=== PATIENT | male | born 1990 | race Two or more races ===

== ENCOUNTER 2017-11-30 18:49 | Observation (INO) | payer OTHER ==
--- NOTE | 2017-11-30 19:02 | PDOC ---
Rapid Medical Evaluation Chief Complaint: Eye Problem Time Seen by Provider: 11/30/17 18:56 Medical Evaluation: Allergies Allergy/AdvReac Type Severity Reaction Status Date / Time sulfamethoxazole Allergy Rash Verified 11/30/17 18:53 [From Bactrim] trimethoprim [From Bactrim] Allergy Rash Verified 11/30/17 18:53 11/30/17 18:57 Pt c/o: rt eye redness x 4 months, pcp referred to optho, recent dx of syphyllis , c/o blurriness to eye Pt on brief exam: no lesions, no discharge, Pt ordered for : none Pt to proceed to the ED Discharge Disposition - Diagnosis Acquired syphilis - Referrals - Patient Instructions - Post Discharge Activity
--- NOTE | 2017-11-30 19:14 | PDOC ---
History of Present Illness <Mary Ornelas - Last Filed: 11/30/17 19:51> - History of Present Illness Initial Comments: 11/30/17 19:27 Mr. Caldwell is a 27 yo male w/ pmh of HIV (last viral load 40 with CD4 count 596 () who presents for evaluation of new onset syphilis diagnosis with uveitis. Patient reports he has had a rash on his penis since the end of october and right eye redness with photophobia since. Mr. Caldwell was treated with 2.4M units of penicillin on 11/22/17. He has no further complaints at this time. The patient denies chest pain, shortness of breath, headache and dizziness. Denies fever, chills, nausea, vomit, diarrhea and constipation. Denies dysuria, frequency, urgency and hematuria. Allergies: Sulfamethoxazole, trimethoprim <Dominic Mckeon - Last Filed: 11/30/17 23:48> - General Chief Complaint: Eye Problem Stated Complaint: EYE PROBLEM Time Seen by Provider: 11/30/17 18:56 Past History <Mary Ornelas - Last Filed: 11/30/17 19:51> - Past Medical History Asthma: No Diabetes: No - Immunization History Immunization Up to Date: Yes - Suicide/Smoking/Psychosocial Hx Smoking History: Never smoked Have you smoked in the past 12 months: Yes Number of Cigarettes Smoked Daily: 7 If you are a former smoker, when did you quit?: 5 Cigars Per Day: 0 Hx Alcohol Use: Yes (alcohol socially) Drug/Substance Use Hx: Yes (admits to use of pills in past; none currently) Substance Use Type: Marijuana Hx Substance Use Treatment: No <Dominic Mckeon - Last Filed: 11/30/17 23:48> - Past Medical History Allergies/Adverse Reactions: Allergies Allergy/AdvReac Type Severity Reaction Status Date / Time sulfamethoxazole Allergy Rash Verified 11/30/17 18:53 [From Bactrim] trimethoprim [From Bactrim] Allergy Rash Verified 11/30/17 18:53 Home Medications: Ambulatory Orders Loratadine [Claritin -] 10 mg PO DAILY #30 tablet 11/03/17 Multivitamin,Ther and Minerals [Vitamin and Minerals] 1 each PO DAILY #30 tablet 11/03/17 Review of Systems - Review of Systems Comments:: 11/30/17 20:23 GENERAL/CONSTITUTIONAL: No fever or chills. No weakness. HEAD, EYES, EARS, NOSE AND THROAT: +Right eye redness and sensitivity to light since late October. CARDIOVASCULAR: No chest pain or shortness of breath RESPIRATORY: No cough, wheezing, or hemoptysis. GASTROINTESTINAL: No nausea, vomiting, diarrhea or constipation. GENITOURINARY: +Rash to head of penis. Painless without discharge. No dysuria, frequency, or change in urination. MUSCULOSKELETAL: No joint or muscle swelling or pain. No neck or back pain. SKIN: No rash NEUROLOGIC: No headache, vertigo, loss of consciousness, or change in strength/ sensation. ENDOCRINE: No increased thirst. No abnormal weight change HEMATOLOGIC/LYMPHATIC: No anemia, easy bleeding, or history of blood clots. ALLERGIC/IMMUNOLOGIC: No hives or skin allergy. <Dominic Mckeon - Last Filed: 11/30/17 23:48> *Physical Exam - Vital Signs Last Vital Signs Temp Pulse Resp BP Pulse Ox 98.2 F 110 H 18 159/84 98 11/30/17 18:53 11/30/17 18:53 11/30/17 18:53 11/30/17 18:53 11/30/17 18:53 <Mary Ornelas - Last Filed: 11/30/17 19:51> - Vital Signs Last Vital Signs Temp Pulse Resp BP Pulse Ox 98.2 F 110 H 18 159/84 98 11/30/17 18:53 11/30/17 18:53 11/30/17 18:53 11/30/17 18:53 11/30/17 18:53 - Physical Exam Comments: 11/30/17 20:23 GENERAL: Awake, alert, and fully oriented, in no acute distress HEAD: No signs of trauma, normocephalic, atraumatic EYES: +Right eye sclera inflammed.. PERRLA, EOMI ENT: Auricles normal inspection, hearing grossly normal, nares patent, oropharynx clear without exudates. Moist mucosa NECK: Normal ROM, supple, no lymphadenopathy, JVD, or masses LUNGS: No distress, speaks full sentences, clear to auscultation bilaterally HEART: Regular rate and rhythm, normal S1 and S2, no murmurs, rubs or gallops, peripheral pulses normal and equal bilaterally. ABDOMEN: Soft, nontender, normoactive bowel sounds. No guarding, no rebound. No masses EXTREMITIES: Normal inspection, Normal range of motion, no edema. No clubbing or cyanosis. NEUROLOGICAL: Cranial nerves II through XII grossly intact. Normal speech, normal gait, no focal sensorimotor deficits SKIN: Warm, Dry, normal turgor, no rashes or lesions noted. : Multiple painless chancre-like lesions noted to glans and shaft of penis. No drainage noted. <Dominic Mckeon - Last Filed: 11/30/17 23:48> ED Treatment Course - LABORATORY CBC & Chemistry Diagram: 11/30/17 20:40 11/30/17 20:40 <Dominic Mckeon - Last Filed: 11/30/17 23:48> Medical Decision Making - Medical Decision Making 11/30/17 19:52 Dr. Francis was paged and notified via phone service. <Mary Ornelas - Last Filed: 11/30/17 19:51> - Medical Decision Making 11/30/17 20:18 Mr. Caldwell is a 27 yo male w/ pmh as described who presents for evaluation of new onset symphilis with uveitis. Consulted with Dr. Krueger for any special needs prior to admission - recommended ophthalmology consult with admission for further care. No further action necessary at this time. 11/30/17 22:00 Labs grossly wnl as below. EKG/CXR ordered for admission prep. Laboratory Results - last 24 hr 11/30/17 11/30/17 20:40 20:40 WBC 8.5 D RBC 4.51 Hgb 14.5 Hct 42.2 MCV 93.6 MCH 32.2 MCHC 34.3 RDW 12.8 Plt Count 310 MPV 7.1 L Neutrophils % 60.3 Lymphocytes % 27.7 Monocytes % 9.4 Eosinophils % 1.8 Basophils % 0.8 Sodium 142 Potassium 4.1 Chloride 109 H Carbon Dioxide 26 Anion Gap 7 L BUN 15 D Creatinine 1.1 Creat Clearance w eGFR > 60 Random Glucose 96 D Calcium 8.7 Total Bilirubin 0.9 AST 17 D ALT 21 D Alkaline Phosphatase 89 Total Protein 6.8 Albumin 4.1 11/30/17 23:33 Inpatient team consulted for admission for further care. <Dominic Mckeon - Last Filed: 11/30/17 23:48> *DC/Admit/Observation/Transfer <Mary Ornelas - Last Filed: 11/30/17 19:51> - Discharge Dispostion Admit: Yes <Dominic Mckeon - Last Filed: 11/30/17 23:48> Diagnosis at time of Disposition: Acquired syphilis, Uveitis - Referrals Referrals: Divya Nguyen, [employer] [Primary Care Provider] -
--- NOTE | 2017-11-30 19:47 | PDOC ---
Attending Attestation - Resident Resident Name: Dominic Mckeon - ED Attending Attestation I have performed the following: I have examined & evaluated the patient, The case was reviewed & discussed with the resident, I agree w/resident's findings & plan, Exceptions are as noted - HPI HPI: 11/30/17 19:43 27y M hx of HIV (CD4 500s, VRL 40) on HAART, presents with R sided eye pain, pt was noted to have +RPR, was noted to have uveitis as an outpatient - was referred by ophtho and ID to the ED for further evaluation. Pt endorses photophobia on R eye. Pt was treated with bicilin a few days ago endorses penile rash pt denies fever/chills, cp, sob, on exam cardiac exam clear pulm: cta gu: penile rash neuro exam unremarkble - Physicial Exam PE: 12/01/17 03:16 see above - Medical Decision Making 11/30/17 23:43 ID requests admission for management of neuro syphillis
[2017-11-30 21:24] LABS: BASO % 0.8 % (0-2.0); EOS % 1.8 % (0-4.5); HEMATOCRIT 42.2 % (35.4-49); HEMOGLOBIN 14.5 GM/dL (11.7-16.9); LYMPH % 27.7 % (8-40); MCH 32.2 pg (25.7-33.7); MCHC 34.3 g/dl (32.0-35.9); MEAN CELL VOLUME 93.6 fl (80-96); MEAN PLT VOLUME 7.1 fl (7.5-11.1); MONO % 9.4 % (3.8-10.2); NEUT % 60.3 % (42.8-82.8); PLATELET COUNT 310 K/MM3 (134-434); RBC 4.51 M/mm3 (4.00-5.60); RDW 12.8 % (11.9-15.9); WHITE BLOOD COUNT 8.5 K/mm3 (4.0-10.0)
[2017-11-30 21:51] LABS: ALBUMIN 4.1 g/dl (3.4-5.0); ANION GAP 7 (8-16); BILIRUBIN,TOTAL 0.9 mg/dL (0.2-1.0); BLOOD UREA NITROGEN 15 mg/dL (7-18); CALCIUM 8.7 mg/dL (8.5-10.1); CHLORIDE 109 mmol/L (98-107); CO2 26 mmol/L (21-32); CREATININE 1.1 mg/dL (0.7-1.3); GLUCOSE,RANDOM 96 mg/dL (74-106); POTASSIUM 4.1 mmol/L (3.5-5.1); SGOT/AST 17 U/L (15-37); SGPT/ALT 21 U/L (12-78); SODIUM 142 mmol/L (136-145); TOT PROT 6.8 g/dl (6.4-8.2)
[2017-11-30 21:52] LABS: ALK PHOS 89 U/L (45-117)
[2017-11-30] MEDS ORDERED: PENICILLIN G POTASSIUM 5,000,000 (5Mm) UNIT VIAL IVPB ONE (23:44)
--- NOTE | 2017-12-01 02:58 | HP ---
CHIEF COMPLAINT: Sent by PCP PCP: Divya Nguyen HISTORY OF PRESENT ILLNESS: The patient is a 27 yo m w/ PMH HIV (Last viral load 40, CD4 596 11/03/2017) who was sent to the ED by his PCP after a new diagnosis of syphilis with uveitis. [facility] on 11/17, he was seen there c/o eye discomfort and genital rash. RPR at that visit was positive and patient was recalled 11/22. At this second visit, the patient's rash had spread to his hand. The patient was treated with IM penicillin G and instructed to follow-up with an monomer recovery supervisor. The patient's monomer recovery supervisor was concerned for anterior uveitis and encourage the patient to follow-up to rule out neurosyphilis. The patient has been manogamous with one male for the past year and uses condoms occasionally. Patient denies dysuria, fever, chills, shortness of breath, chest pain, abdominal pain. ER course was notable for: (1) (2) (3) Recent Travel: none PAST MEDICAL HISTORY: HIV PAST SURGICAL HISTORY: none Social History: Smoking: smokes 5-7 cigarettes per day for 6 years Alcohol: socially Drugs: marijuana Family History: non-contributory Allergies sulfamethoxazole [From Bactrim] Allergy (Verified 11/30/17 18:53) Rash Jul 2015 - took bactrim for a cyst; developed itching, redness, felt tired and could not move trimethoprim [From Bactrim] Allergy (Verified 11/30/17 18:53) Rash Jul 2015 - took bactrim for a cyst; developed itching, redness, felt tired and could not move HOME MEDICATIONS: Home Medications Medication Instructions Recorded Loratadine [Claritin -] 10 mg PO DAILY #30 tablet 11/03/17 Multivitamin,Ther and Minerals 1 each PO DAILY #30 tablet 11/03/17 [Vitamin and Minerals] REVIEW OF SYSTEMS CONSTITUTIONAL: Absent: fever, chills, diaphoresis, generalized weakness, malaise, loss of appetite, weight change HEENT: Absent: rhinorrhea, nasal congestion, throat pain, throat swelling, difficulty swallowing, mouth swelling, ear pain, eye pain, visual changes CARDIOVASCULAR: Absent: chest pain, syncope, palpitations, irregular heart rate, lightheadedness , peripheral edema RESPIRATORY: Absent: cough, shortness of breath, dyspnea with exertion, orthopnea, wheezing, stridor, hemoptysis GASTROINTESTINAL: Absent: abdominal pain, abdominal distension, nausea, vomiting, diarrhea, constipation, melena, hematochezia GENITOURINARY: Absent: dysuria, frequency, urgency, hesitancy, hematuria, flank pain, genital pain MUSCULOSKELETAL: Absent: myalgia, arthralgia, joint swelling, back pain, neck pain SKIN: Absent: rash, itching, pallor HEMATOLOGIC/IMMUNOLOGIC: Absent: easy bleeding, easy bruising, lymphadenopathy, frequent infections ENDOCRINE: Absent: unexplained weight gain, unexplained weight loss, heat intolerance, cold intolerance NEUROLOGIC: Absent: headache, focal weakness or paresthesias, dizziness, unsteady gait, seizure, mental status changes, bladder or bowel incontinence PSYCHIATRIC: Absent: anxiety, depression, suicidal or homicidal ideation, hallucinations. PHYSICAL EXAMINATION Vital Signs - 24 hr 11/30/17 12/01/17 18:53 00:56 Temperature 98.2 F Pulse Rate 110 H Pulse Rate [ 91 H Right] Respiratory 18 20 Rate Blood Pressure 159/84 Blood Pressure 146/82 [Left Arm] O2 Sat by Pulse 98 99 Oximetry (%) GENERAL: Awake, alert, and fully oriented, in no acute distress. HEAD: Normal with no signs of trauma. EYES: Pupils equal, round and reactive to light, extraocular movements intact, sclera anicteric, conjunctiva clear. No lid lag. Mild scleral injection in the right eye EARS, NOSE, THROAT: Ears normal, nares patent, oropharynx clear without exudates. Moist mucous membranes. NECK: Normal range of motion, supple without lymphadenopathy, JVD, or masses. LUNGS: Breath sounds equal, clear to auscultation bilaterally. No wheezes, and no crackles. No accessory muscle use. HEART: Regular rate and rhythm, normal S1 and S2 without murmur, rub or gallop. ABDOMEN: Soft, nontender, not distended, normoactive bowel sounds, no guarding, no rebound, no masses. No hepatomegaly or splenomegaly. LOWER EXTREMITIES: 2+ pulses, warm, well-perfused. No calf tenderness. No peripheral edema. NEUROLOGICAL: Cranial nerves II-X intact. Normal speech. strength 5/5 in all extremities. PSYCHIATRIC: Cooperative. Good eye contact. Appropriate mood and affect. SKIN: Warm, dry, normal turgor, no rashes or lesions noted, normal capillary refill. Genital: Multiple flesh colored lesions over the shaft and glans of the penis. Lesions are not painful and dry. Laboratory Results - last 24 hr 11/30/17 11/30/17 20:40 20:40 WBC 8.5 D RBC 4.51 Hgb 14.5 Hct 42.2 MCV 93.6 MCH 32.2 MCHC 34.3 RDW 12.8 Plt Count 310 MPV 7.1 L Neutrophils % 60.3 Lymphocytes % 27.7 Monocytes % 9.4 Eosinophils % 1.8 Basophils % 0.8 Sodium 142 Potassium 4.1 Chloride 109 H Carbon Dioxide 26 Anion Gap 7 L BUN 15 D Creatinine 1.1 Creat Clearance w eGFR > 60 Random Glucose 96 D Calcium 8.7 Total Bilirubin 0.9 AST 17 D ALT 21 D Alkaline Phosphatase 89 Total Protein 6.8 Albumin 4.1 ASSESSMENT/PLAN: The patient is a 27 yo m w/ PMH HIV who is being admitted for further workup for possible neurosyphilis #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 - New Patient This patient is new to me today: Yes Date on this admission: 12/01/17 - Critical Care Critical Care patient: No Hospitalist Screening - Colonoscopy Questionnaire Colonoscopy Questionnaire: Colonoscopy Questionnaire - Patient: 50 - 75 years old and never had a screening colonoscopy: No History of colon or rectal polyps, or CA: No History of IBD, Crohn's disease or UC: No History of abdominal radiation therapy as a child: No - Relative: 1 with colon or rectal CA, or polyps at age 60 or younger: Unknown Colon or rectal CA diagnosed at age 45 or younger: Unknown Multiple relatives with colon or rectal CA: Unknown - Outcome: Screening Result: Negative Screen
[2017-12-01 03:30] VITALS: BMI 23.6
--- NOTE | 2017-12-01 04:49 | PN ---
Teaching Attending Note Name of Resident: Jayme Barrera ATTENDING PHYSICIAN STATEMENT I saw and evaluated the patient. Chart, data, imaging reviewed. I reviewed the resident's note and discussed the case with the resident. I agree with the resident's findings and plan as documented. SUBJECTIVE: 27 yo MSM w/ pmh of HIV (last viral load 40 with CD4 count 596 (11/03/17) with positive RPR in November 2017, s/p one dose of 2.4 million units Bicilin IM 11/22. He c/o several days of blurry vision in his right eye associated with some photophobia. He was seen by opthalmologist who suspected uveitis and told patient to come go to hospital for evaluation. Patient practices oral and anal sex, including receptive. He reported testing negative for chlamydia and gonorrhea in urine. He c/o painless penile lesions since october 2017. He has had one male partner in last year and has been using condoms inconsistently. 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 Right eye blurry vision. -admit to med/surg -send RPR -opthalmology consult -ID consult -Lumbar puncture -cell count, vdrl, protein level, glucose, ldh -if confirmed ocular syphilis, patient will need IV penicillin #HIV -controlled -send CD4 count -HIV viral load PCR -continue Genvoya 1 tab daily -send chlamydia/gonorrhea NAAT in urine #DVT ppx -heparin sc Diet- regular diet
[2017-12-01 07:11] LABS: BASO % 0.8 % (0-2.0); EOS % 2.8 % (0-4.5); HEMATOCRIT 41.4 % (35.4-49); HEMOGLOBIN 14.5 GM/dL (11.7-16.9); LYMPH % 44.1 % (8-40); MCH 32.4 pg (25.7-33.7); MCHC 34.9 g/dl (32.0-35.9); MEAN CELL VOLUME 92.8 fl (80-96); MEAN PLT VOLUME 7.1 fl (7.5-11.1); MONO % 10.6 % (3.8-10.2); NEUT % 41.7 % (42.8-82.8); PLATELET COUNT 298 K/MM3 (134-434); RBC 4.46 M/mm3 (4.00-5.60); RDW 12.9 % (11.9-15.9); WHITE BLOOD COUNT 6.7 K/mm3 (4.0-10.0)
--- NOTE | 2017-12-01 07:48 | MSN ---
Progress Note (SOAP) - Subjective Chief Complaint: "Right eye pain" History of Present Illness: Pt is a 27 y/o male with past medical history of HIV managed with HAART therapy , at the [facility], who presented to the ED on 11/30 with right eye pain. Pt had a positive RPR for syphilis in November 2017 and received one dose of IM bicillin on 11/22/17. He has had several days of right eye pain and blurry vision along with photophobia. Pt was sent from [facility] to kiss machine operator for evaluation of eye who then sent the patient to the ED. Patient currently complains of no eye pain and vision blurriness has improved. Patient denies any nausea, vomiting, fever, chills, shortness of breath, chest pain or dysuria. Patient denies any urethral discharge. Patient is sexually active and monogamous with one male partner for the past year. Patient practices oral and anal sex and does not use protection consistently. - Objective Vital Signs: Vital Signs Temperature 97.8 F 12/01/17 01:30 Pulse Rate 60 12/01/17 01:30 Respiratory Rate 20 12/01/17 06:00 Blood Pressure 124/58 12/01/17 01:30 O2 Sat by Pulse Oximetry (%) 99 12/01/17 06:00 Constitutional: Yes: Well Nourished, No Distress, Calm Eyes: Yes: EOM Intact, Other (Right eye scleral inflammation) HENT: Yes: Atraumatic, Normocephalic Neck: Yes: Supple Cardiovascular: Yes: Regular Rate and Rhythm Respiratory: Yes: Regular, CTA Bilaterally Gastrointestinal: Yes: Normal Bowel Sounds, Soft Genitourinary: Yes: Other (Erythematous rash) Peripheral Pulses WNL: Yes Peripheral Pulses: Left Radial: 2+, Right Radial: 2+, Left Doralis Pedis: 2+, Right Dorsalis Pedis: 2+ Edema: No Integumentary: Yes: Erythema Neurological: Yes: Alert, Oriented, Cran Nerves II-XII Intact ...Motor Strength: Yes: WNL Psychiatric: Yes: Alert, Oriented Labs Lab Results: CBC, BMP 12/01/17 06:50 Assessment/Plan 1) Right Eye Uveitis * Possibly due to neurosyphilis * ID consulted * Consult ophthalmology * Positive RPR in November 2017 * If neurosyphilis is confirmed pt will need IV Penicillin 2) HIV * Controlled with HAART therapy * Managed at the [facility] * Chlamydia/gonorrhea NAAT * Continue Genvoya one tablet daily PO
[2017-12-01 08:05] LABS: CHLORIDE 108 mmol/L (98-107); POTASSIUM 3.8 mmol/L (3.5-5.1); SODIUM 142 mmol/L (136-145)
[2017-12-01 08:11] LABS: BLOOD UREA NITROGEN 11 mg/dL (7-18); GLUCOSE,RANDOM 86 mg/dL (74-106)
--- NOTE | 2017-12-01 08:11 | CON.ID ---
Consult Consult Specialty:: Infectious Disease Referred by:: Primary Reason for Consultation:: Syphilis, HIV - History of Present Illness History of Present Illness: 27 year old M with pmh of HIV (last cd4 596, Viral load 40 11/03/17) sent by PCP for new onset syphilis with uveitis. Patient was dx with syphilis on 11/17. He had been having blurry vision and photophobia over the last month. Patient went to optho and there was concern for uveitis. Patient denies fever, chills, chest pain, sob, abd pain, dysuria, hematuria, frequency, urgency, n/v/d/c. Patient is sexually active with males and uses condoms 99% of the time. Patient just exited a monogamous relationship after his diagnosis of syphilis. - History Source History Provided By: Patient Limitations to Obtaining History: No Limitations - Alcohol/Substance Use Hx Alcohol Use: Yes (alcohol socially) - Smoking History Smoking history: Never smoked Have you smoked in the past 12 months: Yes Aproximately how many cigarettes per day: 7 If you are a former smoker, when did you quit?: 5 Home Medications - Allergies Allergies/Adverse Reactions: Allergies Allergy/AdvReac Type Severity Reaction Status Date / Time sulfamethoxazole Allergy Rash Verified 11/30/17 18:53 [From Bactrim] trimethoprim [From Bactrim] Allergy Rash Verified 11/30/17 18:53 - Home Medications Home Medications: Ambulatory Orders Loratadine [Claritin -] 10 mg PO DAILY #30 tablet 11/03/17 Multivitamin,Ther and Minerals [Vitamin and Minerals] 1 each PO DAILY #30 tablet 11/03/17 Family Disease History - Family Disease History Family Disease History: Heart Disease: Grandparent (PGF - d. [place]), Father (?HTN) , [place]: Mother (HIV, throat ca, rubin pna, age 50), Other: Mother Review of Systems - Review of Systems Constitutional: denies: Chills, Fever Eyes: reports: Blurred Vision, Photophobia Neck: reports: No Symptoms Cardiovascular: reports: No Symptoms Respiratory: reports: No Symptoms Gastrointestinal: reports: No Symptoms Genitourinary: reports: Lesions, Pain Physical Exam Vital Signs: Vital Signs Temperature 97.8 F 12/01/17 01:30 Pulse Rate 60 12/01/17 01:30 Respiratory Rate 20 12/01/17 06:00 Blood Pressure 124/58 12/01/17 01:30 O2 Sat by Pulse Oximetry (%) 99 12/01/17 06:00 Constitutional: Yes: Well Nourished, No Distress, Calm Eyes: Yes: EOM Intact, PERRL, Other (Mild scleral injection-- Right eye) HENT: Yes: Atraumatic Neck: Yes: Supple, Trachea Midline. No: Lymphadenopathy Cardiovascular: Yes: Regular Rate and Rhythm, S1, S2 Respiratory: Yes: WNL, Regular, CTA Bilaterally Gastrointestinal: Yes: Normal Bowel Sounds, Soft. No: Tenderness Renal/: Yes: Other (Multiple papules along penile shaft and glans) Neurological: Yes: Alert, Oriented Psychiatric: Yes: Alert, Oriented Labs: CBC, BMP 12/01/17 06:50 Laboratory Tests 11/03/17 11/17/17 12/01/17 12:05 13:00 06:50 WBC 6.7 Absolute CD3 Count % CD3+ Lymphocytes Absolute CD4 [place] % CD4+ Lymphocyte CD4/CD8 Ratio % CD8+ Lymphocyte Absolute CD8 Count RPR Titer Reactive 1:32 H D C. trachomatis (ROHIT) HIV-1 RNA (PCR) 40 HIV-1 RNA (PCR) log10 1.602 N. gonorrhoeae (ROHIT) 12/01/17 12/01/17 06:50 06:50 WBC Absolute CD3 Count Pending % CD3+ Lymphocytes Pending Absolute CD4 [place] Pending % CD4+ Lymphocyte Pending CD4/CD8 Ratio Pending % CD8+ Lymphocyte Pending Absolute CD8 Count Pending RPR Titer Pending C. trachomatis (ROHIT) Pending HIV-1 RNA (PCR) HIV-1 RNA (PCR) log10 N. gonorrhoeae (ROHIT) Pending Imaging - Results Chest X-ray: Report Reviewed Assessment/Plan 1. Ocular Syphilis 2. HIV Plan: -IV penicillin G 4 million units daily q4h -Upon discharge, Can go on 200 mg doxycycline for a total of 21-28 days -Continue ART (Genvoya)
[2017-12-01 08:12] LABS: ALBUMIN 3.7 g/dl (3.4-5.0); ALK PHOS 81 U/L (45-117); ANION GAP 7 (8-16); BILIRUBIN,TOTAL 0.9 mg/dL (0.2-1.0); CALCIUM 8.2 mg/dL (8.5-10.1); CO2 27 mmol/L (21-32); PHOSPHOROUS 3.8 mg/dL (2.5-4.9); SGOT/AST 13 U/L (15-37); SGPT/ALT 18 U/L (12-78); TOT PROT 6.2 g/dl (6.4-8.2)
--- NOTE | 2017-12-01 08:58 | PN ---
Teaching Attending Note Name of Resident: Jarrod Swanson ATTENDING PHYSICIAN STATEMENT I saw and evaluated the patient. I reviewed the resident's note and discussed the case with the resident. I agree with the resident's findings and plan as documented. 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
--- NOTE | 2017-12-01 09:53 | CONSULT ---
Consult - text type - Consultation Consultation Note: Neurology HISTORY OF PRESENT ILLNESS: The patient is a 27 yo m w/ PMH HIV (Last viral load 40, CD4 596 11/03/2017) who was sent to the ED by his PCP after a new diagnosis of syphilis with uveitis. Patient follows at the [facility], on 11/17, he was seen there c/o Right eye discomfort and genital rash. RPR at that visit was positive and patient was recalled 11/22. At this second visit, the patient's rash had spread to his hand. The patient was treated with IM penicillin G and instructed to follow-up with an electronics specialist. The patient's electronics specialist was concerned for anterior uveitis and encourage the patient to follow-up to rule out neurosyphilis. Patient denies eye complaints today. Denied any pain in his eye. He has not had imaging of his head but CT head has been ordered. Spoke to primary team and only was to appropraitely evaluate for neurosyphillis would be spinal tap. Would recommended Fluro guided. Patient nervous about procedure, but reassured during conversation and in agreement. Recent Travel: none PAST MEDICAL HISTORY: HIV PAST SURGICAL HISTORY: none Social History: Smoking: smokes 5-7 cigarettes per day for 6 years Alcohol: socially Drugs: marijuana Family History: non-contributory Allergies sulfamethoxazole [From Bactrim] Allergy (Verified 11/30/17 18:53) Rash Jul 2015 - took bactrim for a cyst; developed itching, redness, felt tired and could not move trimethoprim [From Bactrim] Allergy (Verified 11/30/17 18:53) Rash Jul 2015 - took bactrim for a cyst; developed itching, redness, felt tired and could not move HOME MEDICATIONS: Home Medications Medication Instructions Recorded Loratadine [Claritin -] 10 mg PO DAILY #30 tablet 11/03/17 Multivitamin,Ther and Minerals 1 each PO DAILY #30 tablet 11/03/17 [Vitamin and Minerals] REVIEW OF SYSTEMS CONSTITUTIONAL: Absent: fever, chills, diaphoresis, generalized weakness, malaise, loss of appetite, weight change HEENT: Absent: rhinorrhea, nasal congestion, throat pain, throat swelling, difficulty swallowing, mouth swelling, ear pain, eye pain, visual changes CARDIOVASCULAR: Absent: chest pain, syncope, palpitations, irregular heart rate, lightheadedness , peripheral edema RESPIRATORY: Absent: cough, shortness of breath, dyspnea with exertion, orthopnea, wheezing, stridor, hemoptysis GASTROINTESTINAL: Absent: abdominal pain, abdominal distension, nausea, vomiting, diarrhea, constipation, melena, hematochezia GENITOURINARY: Absent: dysuria, frequency, urgency, hesitancy, hematuria, flank pain, genital pain MUSCULOSKELETAL: Absent: myalgia, arthralgia, joint swelling, back pain, neck pain SKIN: Absent: rash, itching, pallor HEMATOLOGIC/IMMUNOLOGIC: Absent: easy bleeding, easy bruising, lymphadenopathy, frequent infections ENDOCRINE: Absent: unexplained weight gain, unexplained weight loss, heat intolerance, cold intolerance NEUROLOGIC: Absent: headache, focal weakness or paresthesias, dizziness, unsteady gait, seizure, mental status changes, bladder or bowel incontinence PSYCHIATRIC: Absent: anxiety, depression, suicidal or homicidal ideation, hallucinations. PHYSICAL EXAMINATION Vital Signs Period Temp Pulse Resp BP Sys/Humphrey Pulse Ox Last 24 Hr 97.8 F-98.2 F 60-110 18-20 124-159/58-84 98-99 GENERAL: Awake, alert, and fully oriented, in no acute distress. HEAD: Normal with no signs of trauma. EYES: Pupils equal, round and reactive to light, extraocular movements intact, sclera anicteric, conjunctiva clear. No lid lag. Mild scleral injection in the right eye EARS, NOSE, THROAT: Ears normal, nares patent, oropharynx clear without exudates. Moist mucous membranes. NECK: Normal range of motion, supple without lymphadenopathy, JVD, or masses. LUNGS: Breath sounds equal, clear to auscultation bilaterally. No wheezes, and no crackles. No accessory muscle use. HEART: Regular rate and rhythm, normal S1 and S2 without murmur, rub or gallop. ABDOMEN: Soft, nontender, not distended, normoactive bowel sounds, no guarding, no rebound, no masses. No hepatomegaly or splenomegaly. LOWER EXTREMITIES: 2+ pulses, warm, well-perfused. No calf tenderness. No peripheral edema. NEUROLOGICAL: Cranial nerves II-X intact. Normal speech. strength 5/5 in all extremities, sensory intact, gait deferred PSYCHIATRIC: Cooperative. Good eye contact. Appropriate mood and affect. SKIN: Warm, dry, normal turgor, no rashes or lesions noted, normal capillary refill. CBCD WBC 6.7 K/mm3 (4.0-10.0) 12/01/17 06:50 RBC 4.46 M/mm3 (4.00-5.60) 12/01/17 06:50 Hgb 14.5 GM/dL (11.7-16.9) 12/01/17 06:50 Hct 41.4 % (35.4-49) 12/01/17 06:50 MCV 92.8 fl (80-96) 12/01/17 06:50 MCHC 34.9 g/dl (32.0-35.9) 12/01/17 06:50 RDW 12.9 % (11.9-15.9) 12/01/17 06:50 Plt Count 298 K/MM3 (134-434) 12/01/17 06:50 MPV 7.1 fl (7.5-11.1) L 12/01/17 06:50 CMP Sodium 142 mmol/L (136-145) 12/01/17 06:50 Potassium 3.8 mmol/L (3.5-5.1) 12/01/17 06:50 Chloride 108 mmol/L (98-107) H 12/01/17 06:50 Carbon Dioxide 27 mmol/L (21-32) 12/01/17 06:50 Anion Gap 7 (8-16) L 12/01/17 06:50 BUN 11 mg/dL (7-18) D 12/01/17 06:50 Creatinine 1.0 mg/dL (0.7-1.3) 12/01/17 06:50 Creat Clearance w eGFR > 60 (>60) 12/01/17 06:50 Calcium 8.2 mg/dL (8.5-10.1) L 12/01/17 06:50 Total Bilirubin 0.9 mg/dL (0.2-1.0) 12/01/17 06:50 AST 13 U/L (15-37) L D 12/01/17 06:50 ALT 18 U/L (12-78) 12/01/17 06:50 Alkaline Phosphatase 81 U/L (45-117) 12/01/17 06:50 Total Protein 6.2 g/dl (6.4-8.2) L 12/01/17 06:50 Albumin 3.7 g/dl (3.4-5.0) 12/01/17 06:50 ASSESSMENT/PLAN: 27 yo m w/ PMH HIV (Last viral load 40, CD4 596 11/03/2017) who was sent to the ED by his PCP after a new diagnosis of syphilis with uveitis. Patient follows at the [facility], on 11/17, he was seen there c/o Right eye discomfort and genital rash. RPR at that visit was positive and patient was recalled 11/22. At this second visit, the patient's rash had spread to his hand. The patient was treated with IM penicillin G and instructed to follow-up with an electronics specialist. The patient's electronics specialist was concerned for anterior uveitis and encourage the patient to follow-up to rule out neurosyphilis. Patient denies eye complaints today. Denied any pain in his eye. He has not had imaging of his head but CT head has been ordered. Spoke to primary team and only was to appropraitely evaluate for neurosyphillis would be spinal tap after CT head completed. Would recommended Fluro guided spinal tap Patient nervous about procedure, but reassured during conversation and in agreement ID following, follow up rec'd Optho follow up Continue treatment of syphilis Otherwise neurologically stable
--- NOTE | 2017-12-01 10:03 | EKG ---
Test Reason : Blood Pressure : / mmHG Vent. Rate : 065 BPM Atrial Rate : 065 BPM P-R Int : 162 ms QRS Dur : 096 ms QT Int : 392 ms P-R-T Axes : 072 078 051 degrees QTc Int : 407 ms NORMAL SINUS RHYTHM WITH SINUS ARRHYTHMIA INCOMPLETE RBBB NO PREVIOUS ECGS AVAILABLE Confirmed by ERIKA ATKINS MD ([id number]) on 12/01/2017 10:02:44 AM Referred By: Confirmed By:ERIKA ATKINS MD
[2017-12-01] MEDS ORDERED: PENICILLIN G POTASSIUM 20,000,000 (20Mm) UNITS VIAL IVPB SCH (13:30)
[2017-12-01] MEDS: LORATADINE 10 MG TABLET PO SCH (14:05)
[2017-12-01] MEDS: MULTIVITAMINS THER W-MINERALS COMBO TABLET (FP) PO SCH (14:05)
[2017-12-01 14:33] LABS: TREPONEMA ANTIBODY PREVIOUSLY REACTIVE (NONREACTIVE)
--- NOTE | 2017-12-01 14:36 | PN ---
Teaching Attending Note Name of Resident: Gunner Hernandez ATTENDING PHYSICIAN STATEMENT Time of evaluation: 10:40 AM I saw and evaluated the patient. I reviewed the resident's note and discussed the case with the resident. I agree with the resident's findings and plan as documented with exceptions mentioned below. SUBJECTIVE: Patient seen and examined. eye symptoms improved. Still with rash on his penile region, no new fevers, chills or concerns. Positive photophobia from prior to admission. OBJECTIVE: Vital Signs Period Temp Pulse Resp BP Sys/Humphrey Pulse Ox Last 24 Hr 97.8 F-98.2 F 60-110 18-20 124-159/58-84 98-99 Intake & Output 11/28/17 11/29/17 11/30/17 12/01/17 23:59 23:59 23:59 23:59 Intake Total 480 Balance 480 Weight 155 lb 151 lb 3 oz General: sitting in bed in no acute distress HEENT: right scleral injection, PERRL, Abdomen:soft, NT, NT, positive bowel sounds extremities: no edema Genitals: hypopigmented lesion over the dorsal and ventral surface of penis, no erythema or tenderness, no discharge noted Home Medication List Medication Instructions Recorded Confirmed Type Elviteg/Cob/Emtri/Tenof Alafen 1 tablet PO DAILY 12/01/17 12/01/17 History [Genvoya Tablet] Active Medications Generic Name Dose Route Start Last Admin Trade Name Freq PRN Reason Stop Dose Admin Penicillin G Potassium 4,000, 250 mls @ 250 mls/hr 12/01/17 14:00 000 unit/ Dextrose IVPB Q4H-IV TRISTIN Loratadine 10 mg 12/01/17 13:45 12/01/17 14:05 Claritin - PO 10 mg DAILY TRISTIN Administration Multivitamins/Minerals 1 each 12/01/17 13:45 12/01/17 14:05 Theragran-M PO 1 each DAILY TRISTIN Administration Non-Formulary Medication 1 tablet 12/01/17 13:45 Elviteg/Cob/Emtri/Tenof Alafen [Genvoya Tablet] PO DAILY TRISTIN Laboratory Results - last 24 hr 11/30/17 11/30/17 12/01/17 20:40 20:40 06:50 WBC 8.5 D 6.7 RBC 4.51 4.46 Hgb 14.5 14.5 Hct 42.2 41.4 MCV 93.6 92.8 MCH 32.2 32.4 MCHC 34.3 34.9 RDW 12.8 12.9 Plt Count 310 298 MPV 7.1 L 7.1 L Neutrophils % 60.3 41.7 L D Lymphocytes % 27.7 44.1 H D Monocytes % 9.4 10.6 H Eosinophils % 1.8 2.8 Basophils % 0.8 0.8 Sodium 142 Potassium 4.1 Chloride 109 H Carbon Dioxide 26 Anion Gap 7 L BUN 15 D Creatinine 1.1 Creat Clearance w eGFR > 60 Random Glucose 96 D Calcium 8.7 Phosphorus Magnesium Total Bilirubin 0.9 AST 17 D ALT 21 D Alkaline Phosphatase 89 Total Protein 6.8 Albumin 4.1 12/01/17 06:50 WBC RBC Hgb Hct MCV MCH MCHC RDW Plt Count MPV Neutrophils % Lymphocytes % Monocytes % Eosinophils % Basophils % Sodium 142 Potassium 3.8 Chloride 108 H Carbon Dioxide 27 Anion Gap 7 L BUN 11 D Creatinine 1.0 Creat Clearance w eGFR > 60 Random Glucose 86 Calcium 8.2 L Phosphorus 3.8 Magnesium 2.0 Total Bilirubin 0.9 AST 13 L D ALT 18 Alkaline Phosphatase 81 Total Protein 6.2 L Albumin 3.7 ASSESSMENT AND PLAN: 27 yom with HIV on HAART with 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 Start PCN G IV q4h. Discussed with Dr. Francis, address if patient agreable to Pencillin G for 10-14 days would be ideal treatment. However patient adamantly refuses the same though relays full understanding of risks of non or inferior treatment including worsening ocular symptoms, neurosyphilis and . Second option would be to address Ceftriaxone 2G IV daily for 10-14 days. Discussed the option of possible d/c with PICC on monday with home infusion. Patient wants to know details about the same and agreable to consider the option and discuss with social work. Will have social work discuss with patient about the same. If patient declines both, last would be discharge on doxycycline for 21-28 days which patient understands would be suboptimal treatment. As discussed with Dr. Francis, LP at this stage won't change the treatment plan. Also patient not willing and anxious about the same. Will hold off. Will need continued outpatient ophthalmology follow up. Dispo planning on Monday with or without home IV antibiotics. Plan discussed with patient in detail, all questions answered.
--- NOTE | 2017-12-01 15:13 | PN ---
Physical Exam: SUBJECTIVE: Patient seen and examined No acute events overnight. Pt reports mild blurry vision in right eye, denies eye pain. No other complaints. OBJECTIVE: Vital Signs Period Temp Pulse Resp BP Sys/Humphrey Pulse Ox Last 24 Hr 97.8 F-98.2 F 60-110 18-20 124-159/58-84 98-99 GENERAL: The patient is awake, alert, and fully oriented, in no acute distress. HEENT: right eye has mild scleral injection. EOMI, PEARRLA. LUNGS: Breath sounds equal, clear to auscultation bilaterally, no wheezes, no crackles, no accessory muscle use. HEART: Regular rate and rhythm, S1, S2 without murmur, rub or gallop. ABDOMEN: Soft, nontender, nondistended, normoactive bowel sounds, no guarding, no rebound, no hepatosplenomegaly, no masses. EXTREMITIES: 2+ pulses, warm, well-perfused, no edema. NEUROLOGICAL: Cranial nerves II through XII grossly intact. sensory function intact and symmetrical, motor strength is 5/5 throughout. Laboratory Results - last 24 hr 11/30/17 11/30/17 12/01/17 20:40 20:40 06:50 WBC 8.5 D 6.7 RBC 4.51 4.46 Hgb 14.5 14.5 Hct 42.2 41.4 MCV 93.6 92.8 MCH 32.2 32.4 MCHC 34.3 34.9 RDW 12.8 12.9 Plt Count 310 298 MPV 7.1 L 7.1 L Neutrophils % 60.3 41.7 L D Lymphocytes % 27.7 44.1 H D Monocytes % 9.4 10.6 H Eosinophils % 1.8 2.8 Basophils % 0.8 0.8 Sodium 142 Potassium 4.1 Chloride 109 H Carbon Dioxide 26 Anion Gap 7 L BUN 15 D Creatinine 1.1 Creat Clearance w eGFR > 60 Random Glucose 96 D Calcium 8.7 Phosphorus Magnesium Total Bilirubin 0.9 AST 17 D ALT 21 D Alkaline Phosphatase 89 Total Protein 6.8 Albumin 4.1 RPR Titer T.pallidum Ab (A) 12/01/17 12/01/17 06:50 06:50 WBC RBC Hgb Hct MCV MCH MCHC RDW Plt Count MPV Neutrophils % Lymphocytes % Monocytes % Eosinophils % Basophils % Sodium 142 Potassium 3.8 Chloride 108 H Carbon Dioxide 27 Anion Gap 7 L BUN 11 D Creatinine 1.0 Creat Clearance w eGFR > 60 Random Glucose 86 Calcium 8.2 L Phosphorus 3.8 Magnesium 2.0 Total Bilirubin 0.9 AST 13 L D ALT 18 Alkaline Phosphatase 81 Total Protein 6.2 L Albumin 3.7 RPR Titer Reactive 1:32 H T.pallidum Ab (MHA) Previously reactive Active Medications Generic Name Dose Route Start Last Admin Trade Name Freq PRN Reason Stop Dose Admin Penicillin G Potassium 4,000, 250 mls @ 250 mls/hr 12/01/17 14:00 000 unit/ Dextrose IVPB Q4H-IV TRISTIN Loratadine 10 mg 12/01/17 13:45 12/01/17 14:05 Claritin - PO 10 mg DAILY TRISTIN Administration Multivitamins/Minerals 1 each 12/01/17 13:45 12/01/17 14:05 Theragran-M PO 1 each DAILY TRISTIN Administration Non-Formulary Medication 1 tablet 12/01/17 13:45 Elviteg/Cob/Emtri/Tenof Alafen [Genvoya Tablet] PO DAILY TRISTIN ASSESSMENT/PLAN: 27M w/ hx of HIV (11/03/17- CD4 of 596, viral load of 40) and syphillis who presented to hospital after being sent by PCP to r/o neurosyphillis due to recent finding of uveitis. #possible neurosyphillis -ID on board, recs appreciated. Continue PCN G q4h. 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 Because pt insisting that he needs to leave hospital by monday, plan for now is to place PICC on monday, and send him home on IV ceftriaxone 2g for 10-14 days with VNS. pt to f/ u as outpt with ophtho. -neuro on board, recs appreciated. -RPR: 1:32 -MHA: previously reactive -CT head: negative #HIV -continue home genvoya #allergies -continue home claritin #FEN/ppx -po fluids -electrolytes wnl -regular diet -no GI ppx indicated -EAM Case discussed with attending, Dr. Tate. -Gunner Hernandez MD PGY1 Visit type - Emergency Visit Emergency Visit: Yes ED Registration Date: 11/30/17 Care time: The patient presented to the Emergency Department on the above date and was hospitalized for further evaluation of their emergent condition. - New Patient This patient is new to me today: Yes Date on this admission: 12/01/17 - Critical Care Critical Care patient: No - Discharge Referral Referred to [facility] No
[2017-12-01] MEDS: WATER IVPB SCH ×3 (15:44→21:35)
[2017-12-01] MEDS: DEXTROSE 5% IVPB SCH ×3 (15:44→21:35)
[2017-12-01] MEDS: PENICILLIN POTASSIUM IVPB SCH ×3 (15:44→21:35)
[2017-12-01] MEDS ORDERED: PT OWN MED DRAWER 7, Y5N ONE (21:04)
--- NOTE | 2017-12-01 21:45 | HOSP ---
Physical Examination Vital Signs: Vital Signs Temperature 98.5 F 12/01/17 18:00 Pulse Rate 69 12/01/17 18:00 Respiratory Rate 20 12/01/17 18:00 Blood Pressure 135/81 12/01/17 18:00 O2 Sat by Pulse Oximetry (%) 99 12/01/17 09:00 Labs: CBC, BMP 12/01/17 06:50 12/01/17 06:50 Hospitalist Encounter Assessment: I was paged by the nurse to evaluate the pt mentioned he isasking to leave against medical advixe , I explained to him the risk and disadvatages of syphilis and neurosyphlis and worsening symptoms including and he decide to leave on his own responsibility with finishing treatment . Doxycyclin po 100 mg BID for 28 days was sent to his pharmacy. Visit type - Emergency Visit Emergency Visit: Yes ED Registration Date: 11/30/17 Care time: The patient presented to the Emergency Department on the above date and was hospitalized for further evaluation of their emergent condition. - New Patient This patient is new to me today: Yes Date on this admission: 12/01/17 - Critical Care Critical Care patient: No
[2017-12-02] MEDS: WATER IVPB SCH ×6 (02:18→20:02)
[2017-12-02] MEDS: PENICILLIN POTASSIUM IVPB SCH ×6 (02:18→20:02)
[2017-12-02] MEDS: DEXTROSE 5% IVPB SCH ×6 (02:18→20:02)
[2017-12-02] MEDS ORDERED: PT OWN MED DRAWER 7, Y5N ONE ×3 (06:57→16:14)
--- NOTE | 2017-12-02 08:07 | PN ---
Physical Exam: SUBJECTIVE: Patient seen and examined Pt almost left AMA overnight, but changed his mind last minute. This am, pt denies any eye pain, discomfort, or blurry vision. He denies chest pain, SOB, n/ v/d/c, and dysuria. OBJECTIVE: Vital Signs Period Temp Pulse Resp BP Sys/Humphrey Pulse Ox Last 24 Hr 97.8 F-98.5 F 60-74 18-20 110-135/70-81 97-99 GENERAL: The patient is awake, alert, and fully oriented, in no acute distress. HEENT: right eye has mild scleral injection. EOMI, PEARRLA. LUNGS: Breath sounds equal, clear to auscultation bilaterally, no wheezes, no crackles, no accessory muscle use. HEART: Regular rate and rhythm, S1, S2 without murmur, rub or gallop. ABDOMEN: Soft, nontender, nondistended, normoactive bowel sounds EXTREMITIES: 2+ pulses, warm, well-perfused, no edema. NEUROLOGICAL: Cranial nerves II through XII grossly intact. sensory function intact and symmetrical, motor strength is 5/5 throughout. Laboratory Results - last 24 hr 12/01/17 12/01/17 06:50 06:50 Sodium 142 Potassium 3.8 Chloride 108 H Carbon Dioxide 27 Anion Gap 7 L BUN 11 D Creatinine 1.0 Creat Clearance w eGFR > 60 Random Glucose 86 Calcium 8.2 L Phosphorus 3.8 Magnesium 2.0 Total Bilirubin 0.9 AST 13 L D ALT 18 Alkaline Phosphatase 81 Total Protein 6.2 L Albumin 3.7 RPR Titer Reactive 1:32 H T.pallidum Ab (MHA) Previously reactive Active Medications Generic Name Dose Route Start Last Admin Trade Name Freq PRN Reason Stop Dose Admin Penicillin G Potassium 4,000, 250 mls @ 250 mls/hr 12/01/17 14:00 12/02/17 06 :33 000 unit/ Dextrose IVPB 250 mls/hr Q4H-IV TRISTIN Administration Loratadine 10 mg 12/01/17 13:45 12/01/17 14:05 Claritin - PO 10 mg DAILY TRISTIN Administration Multivitamins/Minerals 1 each 12/01/17 13:45 12/01/17 14:05 Theragran-M PO 1 each DAILY TRISTIN Administration Non-Formulary Medication 1 tablet 12/01/17 15:45 12/01/17 15:39 Elviteg/Cob/Emtri/Tenof Alafen [Genvoya Tablet] PO Not Given DAILY TRISTIN ASSESSMENT/PLAN: 27M w/ hx of HIV (11/03/17- CD4 of 596, viral load of 40) and syphillis who presented to hospital after being sent by PCP to r/o neurosyphillis due to recent finding of uveitis. #possible neurosyphillis -ID on board, recs appreciated. Continue PCN G q4h (day 2). 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 Because pt insisting that he needs to leave hospital by monday, plan for now is to place PICC on monday, and send him home on IV ceftriaxone 2g for 10-14 days with VNS. pt to f/u as outpt with ophtho. -neuro on board, recs appreciated. -RPR: 1:32 -MHA: previously reactive -CT head: negative #HIV -continue home genvoya #allergies -continue home claritin #FEN/ppx -po fluids -electrolytes wnl per last labs -regular diet -no GI ppx indicated -EAM #Dispo -home with VNS on monday after obtaining PICC line to get IV ceftriaxone Case discussed with attending, Dr. Tate. -Gunner Hernandez MD PGY1 Visit type - Emergency Visit Emergency Visit: Yes ED Registration Date: 11/30/17 Care time: The patient presented to the Emergency Department on the above date and was hospitalized for further evaluation of their emergent condition. - New Patient This patient is new to me today: No - Critical Care Critical Care patient: No
--- NOTE | 2017-12-02 09:49 | PN ---
Teaching Attending Note Name of Resident: Gunner Hernandez ATTENDING PHYSICIAN STATEMENT I saw and evaluated the patient. I reviewed the resident's note and discussed the case with the resident. I agree with the resident's findings and plan as documented. SUBJECTIVE: Patient seen and examined. no complaints, eager to get out. OBJECTIVE: Vital Signs Period Temp Pulse Resp BP Sys/Humphrey Pulse Ox Last 24 Hr 97.8 F-98.5 F 60-74 18-20 110-135/69-81 97 Intake & Output 11/29/17 11/30/17 12/01/17 12/02/17 23:59 23:59 23:59 23:59 Intake Total 1090 500 Output Total 1 Balance 1090 499 Weight 155 lb 151 lb 3 oz General: sitting in bed in no acute distress HEENT: minimal right sclera injection Home Medication List Medication Instructions Recorded Confirmed Type Elviteg/Cob/Emtri/Tenof Alafen 1 tablet PO DAILY 12/01/17 12/01/17 History [Genvoya Tablet] Active Medications Generic Name Dose Route Start Last Admin Trade Name Freq PRN Reason Stop Dose Admin Penicillin G Potassium 4,000, 250 mls @ 250 mls/hr 12/01/17 14:00 12/02/17 06 :33 000 unit/ Dextrose IVPB 250 mls/hr Q4H-IV TRISTIN Administration Loratadine 10 mg 12/01/17 13:45 12/01/17 14:05 Claritin - PO 10 mg DAILY TRISTIN Administration Multivitamins/Minerals 1 each 12/01/17 13:45 12/01/17 14:05 Theragran-M PO 1 each DAILY TRISTIN Administration Non-Formulary Medication 1 tablet 12/01/17 15:45 12/01/17 15:39 Elviteg/Cob/Emtri/Tenof Alafen [Genvoya Tablet] PO Not Given DAILY TRISTIN Laboratory Results - last 24 hr 12/01/17 06:50 RPR Titer Reactive 1:32 H T.pallidum Ab (MHA) Previously reactive ASSESSMENT AND PLAN: 27 yom with HIV on HAART with 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 Continue PCN G 4 million units q4h. Discussed with Dr. Francis, address if patient agreable to Pencillin G for 10-14 days would be ideal treatment. However patient adamantly refuses the same though relays full understanding of risks of non or inferior treatment including worsening ocular symptoms, neurosyphilis and . Second option would be to address Ceftriaxone 2G IV daily for 10-14 days. Discussed the option of possible d/c with PICC on monday with home infusion. Patient wants to know details about the same and agreable to consider the option and discuss with social work. Will have social work discuss with patient about the same. If patient declines both, last would be doxycycline for 21-28 days which patient understands would be suboptimal treatment. As discussed with Dr. Francis, LP at this stage won't change the treatment plan. Also patient not willing and anxious about the same. Will hold off. Will need continued outpatient ophthalmology follow up. Dispo planning on Monday with or without home IV antibiotics. Plan discussed with patient in detail, all questions answered.
[2017-12-02] MEDS: MULTIVITAMINS THER W-MINERALS COMBO TABLET (FP) PO SCH (10:59)
[2017-12-02] MEDS: LORATADINE 10 MG TABLET PO SCH (10:59)
--- NOTE | 2017-12-02 12:46 | PN ---
Progress Note (short form) - Note Progress Note: Neurology HISTORY OF PRESENT ILLNESS: The patient is a 27 yo m w/ PMH HIV (Last viral load 40, CD4 596 11/03/2017) who was sent to the ED by his PCP after a new diagnosis of syphilis with uveitis. Patient follows at the [facility], on 11/17, he was seen there c/o Right eye discomfort and genital rash. RPR at that visit was positive and patient was recalled 11/22. At this second visit, the patient's rash had spread to his hand. The patient was treated with IM penicillin G and instructed to follow-up with an hematologist. The patient's hematologist was concerned for anterior uveitis and encourage the patient to follow-up to rule out neurosyphilis. Patient denies eye complaints today. Denied any pain in his eye. Ct head completed and without acute changes, no masses, reviewed with patient. Patient irritable this AM. Says he was angered by a physician he saw last night. Wanted to leave. Was complaining about being moved from different floor (nurse on prior floor mentioned vent patient brought to room). Patient says he's leaving Monday regardless of where his treatment stands. "will leave it in God's hands" at that point. Explained importance of treatment and of infection. Per notes, LP may be deferred and treatment underway. Plan is for line to be placed and Abx to be given IV outpatient. Is not getting cigarettes and reports that's making him irritable as well. Active Medications Penicillin G Potassium 4,000, (000 unit/ Dextrose) 250 mls @ 250 mls/hr IVPB Q4H-IV TRISTIN Last Admin: 12/02/17 11:44 Dose: 250 mls/hr Loratadine (Claritin -) 10 mg PO DAILY TRISTIN Last Admin: 12/02/17 10:59 Dose: 10 mg Multivitamins/Minerals (Theragran-M) 1 each PO DAILY TRISTIN Last Admin: 12/02/17 10:59 Dose: 1 each Non-Formulary Medication (Elviteg/Cob/Emtri/Tenof Alafen [Genvoya Tablet]) 1 tablet PO DAILY TRISTIN Last Admin: 12/02/17 12:01 Dose: 1 tablet PHYSICAL EXAMINATION Vital Signs Period Temp Pulse Resp BP Sys/Humphrey Pulse Ox Last 24 Hr 97.8 F-98.5 F 59-74 18-20 110-135/69-81 97-99 GENERAL: Awake, alert, and fully oriented, in no acute distress. HEAD: Normal with no signs of trauma. EYES: Pupils equal, round and reactive to light, extraocular movements intact, sclera anicteric, conjunctiva clear. No lid lag. Mild scleral injection in the right eye EARS, NOSE, THROAT: Ears normal, nares patent, oropharynx clear without exudates. Moist mucous membranes. NECK: Normal range of motion, supple without lymphadenopathy, JVD, or masses. LUNGS: Breath sounds equal, clear to auscultation bilaterally. No wheezes, and no crackles. No accessory muscle use. HEART: Regular rate and rhythm, normal S1 and S2 without murmur, rub or gallop. ABDOMEN: Soft, nontender, not distended, normoactive bowel sounds, no guarding, no rebound, no masses. No hepatomegaly or splenomegaly. LOWER EXTREMITIES: 2+ pulses, warm, well-perfused. No calf tenderness. No peripheral edema. NEUROLOGICAL: Cranial nerves II-X intact. Normal speech. strength 5/5 in all extremities, sensory intact, gait deferred PSYCHIATRIC: Cooperative. Good eye contact. Appropriate mood and affect. SKIN: Warm, dry, normal turgor, no rashes or lesions noted, normal capillary refill. CBCD WBC 6.7 K/mm3 (4.0-10.0) 12/01/17 06:50 RBC 4.46 M/mm3 (4.00-5.60) 12/01/17 06:50 Hgb 14.5 GM/dL (11.7-16.9) 12/01/17 06:50 Hct 41.4 % (35.4-49) 12/01/17 06:50 MCV 92.8 fl (80-96) 12/01/17 06:50 MCHC 34.9 g/dl (32.0-35.9) 12/01/17 06:50 RDW 12.9 % (11.9-15.9) 12/01/17 06:50 Plt Count 298 K/MM3 (134-434) 12/01/17 06:50 MPV 7.1 fl (7.5-11.1) L 12/01/17 06:50 CMP Sodium 142 mmol/L (136-145) 12/01/17 06:50 Potassium 3.8 mmol/L (3.5-5.1) 12/01/17 06:50 Chloride 108 mmol/L (98-107) H 12/01/17 06:50 Carbon Dioxide 27 mmol/L (21-32) 12/01/17 06:50 Anion Gap 7 (8-16) L 12/01/17 06:50 BUN 11 mg/dL (7-18) D 12/01/17 06:50 Creatinine 1.0 mg/dL (0.7-1.3) 12/01/17 06:50 Creat Clearance w eGFR > 60 (>60) 12/01/17 06:50 Calcium 8.2 mg/dL (8.5-10.1) L 12/01/17 06:50 Total Bilirubin 0.9 mg/dL (0.2-1.0) 12/01/17 06:50 AST 13 U/L (15-37) L D 12/01/17 06:50 ALT 18 U/L (12-78) 12/01/17 06:50 Alkaline Phosphatase 81 U/L (45-117) 12/01/17 06:50 Total Protein 6.2 g/dl (6.4-8.2) L 12/01/17 06:50 Albumin 3.7 g/dl (3.4-5.0) 12/01/17 06:50 ASSESSMENT/PLAN: 27 yo m w/ PMH HIV (Last viral load 40, CD4 596 11/03/2017) who was sent to the ED by his PCP after a new diagnosis of syphilis with uveitis. Patient follows at the [facility], on 11/17, he was seen there c/o Right eye discomfort and genital rash. RPR at that visit was positive and patient was recalled 11/22. At this second visit, the patient's rash had spread to his hand. The patient was treated with IM penicillin G and instructed to follow-up with an hematologist. The patient's hematologist was concerned for anterior uveitis and encourage the patient to follow-up to rule out neurosyphilis. Patient denies eye complaints today. Denied any pain in his eye. CT head reviewed and without acute changes Per notes, LP likely deferred as treatment plan in place ID following, follow up rec'd Optho follow up Continue treatment of syphilis Consider nicotine patch Explained to patient importance of treatment Relaxation recommended Otherwise neurologically stable
[2017-12-03] MEDS: WATER IVPB SCH ×6 (00:12→20:51)
[2017-12-03] MEDS: DEXTROSE 5% IVPB SCH ×6 (00:12→20:51)
[2017-12-03] MEDS: PENICILLIN POTASSIUM IVPB SCH ×6 (00:12→20:51)
[2017-12-03] MEDS: LORATADINE 10 MG TABLET PO SCH (09:49)
[2017-12-03] MEDS: MULTIVITAMINS THER W-MINERALS COMBO TABLET (FP) PO SCH (09:49)
--- NOTE | 2017-12-03 15:32 | PN ---
Teaching Attending Note Name of Resident: Dom Tate Time of evaluation: 9:45 AM SUBJECTIVE: Patient seen and examined. no complaints, right eye symptoms improved. OBJECTIVE: Vital Signs Period Temp Pulse Resp BP Sys/Humphrey Pulse Ox Last 24 Hr 97.8 F-98.2 F 66-75 16-18 103-134/49-72 96 Intake & Output 11/30/17 12/01/17 12/02/17 12/03/17 23:59 23:59 23:59 23:59 Intake Total 1090 1250 1000 Output Total 1 Balance 1090 1249 1000 Weight 155 lb 151 lb 3 oz General: lying in bed in no acute distress HEENT: improved right scleral injection, EOMI abdomen: soft, NT, ND, positive bowel sounds extremities: no edema Home Medication List Medication Instructions Recorded Confirmed Type Elviteg/Cob/Emtri/Tenof Alafen 1 tablet PO DAILY 12/01/17 12/01/17 History [Genvoya Tablet] Active Medications Generic Name Dose Route Start Last Admin Trade Name Mendez PRN Reason Stop Dose Admin Penicillin G Potassium 4,000, 250 mls @ 250 mls/hr 12/02/17 16:00 12/03/17 11 :57 000 unit/ Dextrose IVPB 250 mls/hr Q4H TRISTIN Administration Loratadine 10 mg 12/01/17 13:45 12/03/17 09:49 Claritin - PO 10 mg DAILY TRISTIN Administration Multivitamins/Minerals 1 each 12/01/17 13:45 12/03/17 09:49 Theragran-M PO 1 each DAILY TRISTIN Administration Non-Formulary Medication 1 tablet 12/01/17 15:45 12/03/17 11:57 Elviteg/Cob/Emtri/Tenof Alafen [Genvoya Tablet] PO 1 tablet DAILY TRISTIN Administration ASSESSMENT AND PLAN: 27 yom with HIV on HAART with 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 Continue PCN G 4 million units q4h. Discussed with Dr. Francis, address if patient agreable to Pencillin G for 10-14 days would be ideal treatment. However patient adamantly refuses the same though relays full understanding of risks of non or inferior treatment including worsening ocular symptoms, neurosyphilis and . Second option would be to address Ceftriaxone 2G IV daily for 10-14 days. Discussed the option of possible d/c with PICC on monday with home infusion. Patient wants to know details about the same and agreable to consider the option and discuss with social work. Will have social work discuss with patient about the same. If patient declines both, last would be doxycycline for 21-28 days which patient understands would be suboptimal treatment. As discussed with Dr. Francis, LP at this stage won't change the treatment plan. Also patient not willing and anxious about the same. Will hold off. Will need continued outpatient ophthalmology follow up. Dispo planning on Monday with or without home IV antibiotics. Plan discussed with patient in detail, all questions answered.
[2017-12-04] MEDS: PENICILLIN POTASSIUM IVPB SCH ×2 (00:30→04:30)
[2017-12-04] MEDS: WATER IVPB SCH ×2 (00:30→04:30)
[2017-12-04] MEDS: DEXTROSE 5% IVPB SCH ×2 (00:30→04:30)
[2017-12-04 05:51] VITALS: BP 107/60; PULSE 60; TEMP 97.6
[2017-12-04 06:59] LABS: BASO % 0.5 % (0-2.0); EOS % 2.7 % (0-4.5); HEMATOCRIT 45.5 % (35.4-49); HEMOGLOBIN 15.6 GM/dL (11.7-16.9); LYMPH % 35.6 % (8-40); MCH 32.1 pg (25.7-33.7); MCHC 34.2 g/dl (32.0-35.9); MEAN CELL VOLUME 94.1 fl (80-96); MEAN PLT VOLUME 7.5 fl (7.5-11.1); MONO % 12.5 % (3.8-10.2); NEUT % 48.7 % (42.8-82.8); PLATELET COUNT 290 K/MM3 (134-434); RBC 4.84 M/mm3 (4.00-5.60); RDW 12.9 % (11.9-15.9); WHITE BLOOD COUNT 7.2 K/mm3 (4.0-10.0)
[2017-12-04 07:21] LABS: ANION GAP 7 (8-16); CHLORIDE 103 mmol/L (98-107); CO2 29 mmol/L (21-32); SODIUM 139 mmol/L (136-145)
[2017-12-04 07:25] LABS: BLOOD UREA NITROGEN 9 mg/dL (7-18); CALCIUM 8.7 mg/dL (8.5-10.1); CREATININE 1.1 mg/dL (0.7-1.3); GLUCOSE,RANDOM 101 mg/dL (74-106)
[2017-12-04] MEDS ORDERED: PICC LINE 8 ML FLUSH PROTOCOL IVPUSH PRN (08:32)
--- NOTE | 2017-12-04 09:02 | PN ---
Progress Note, Physician History of Present Illness: No acute events overnight. Patient wants to leave today. Denies fever, chills, photophobia, eye pain. - Current Medication List Current Medications: Active Medications IV Flush (Picc Line Flush) 8 ml IVPUSH PRN PRN PRN Reason: Protocol CEFTRIAXONE IN IS-OSM DEXTROSE (Ceftriaxone 2 Gm-D5w Bag) 2 gm in 50 mls @ 100 mls/hr IVPB DAILY TRISTIN Loratadine (Claritin -) 10 mg PO DAILY TRISTIN Last Admin: 12/03/17 09:49 Dose: 10 mg Multivitamins/Minerals (Theragran-M) 1 each PO DAILY TRISTIN Last Admin: 12/03/17 09:49 Dose: 1 each Non-Formulary Medication (Elviteg/Cob/Emtri/Tenof Alafen [Genvoya Tablet]) 1 tablet PO DAILY@1200 TRISTIN - Objective Vital Signs: Vital Signs Temperature 97.6 F 12/04/17 05:49 Pulse Rate 60 12/04/17 05:49 Respiratory Rate 18 12/04/17 05:49 Blood Pressure 107/60 12/04/17 05:49 O2 Sat by Pulse Oximetry (%) 96 12/02/17 21:00 Could not examine 2/2 to patient denying examination. Labs: CBC, BMP 12/04/17 05:35 12/04/17 05:35 Assessment/Plan 1. Ocular Syphilis 2. HIV Plan: -Continue IV penicillin G 4 million units daily q4h -Upon discharge, Can go on doxycycline 200 mg BID for a total of 21-28 days or Ceftriaxone 2g IV daily with a PICC Line -Continue ART (Genvoya)
[2017-12-04] MEDS ORDERED: CEFTRIAXONE IN IS-OSM DEXTROSE 2 GM/50 ML BAG IVPB SCH (10:00)
[2017-12-04] MEDS: MULTIVITAMINS THER W-MINERALS COMBO TABLET (FP) PO SCH (10:06)
[2017-12-04] MEDS: LORATADINE 10 MG TABLET PO SCH (10:06)
--- NOTE | 2017-12-04 15:57 | PN ---
Physical Exam: SUBJECTIVE: Patient seen and examined. No acute events overnight. Pt denies blurry vision, eye pain, headache, weakness , numbness, chest pain, SOB, n/v/d/c, and abdominal pain. OBJECTIVE: Vital Signs Period Temp Pulse Resp BP Sys/Humphrey Pulse Ox Last 24 Hr 97.6 F-98.4 F 60-73 18-18 107-143/60-65 GENERAL: The patient is awake, alert, and fully oriented, in no acute distress. HEENT: right eye has mild scleral injection. EOMI, PEARRLA. LUNGS: Breath sounds equal, clear to auscultation bilaterally, no wheezes, no crackles, no accessory muscle use. HEART: Regular rate and rhythm, S1, S2 without murmur, rub or gallop. ABDOMEN: Soft, nontender, nondistended, normoactive bowel sounds EXTREMITIES: 2+ pulses, warm, well-perfused, no edema. NEUROLOGICAL: Cranial nerves II through XII grossly intact. sensory function intact and symmetrical, motor strength is 5/5 throughout. Laboratory Results - last 24 hr 12/01/17 12/04/17 12/04/17 06:50 05:35 05:35 WBC 7.2 RBC 4.84 Hgb 15.6 Hct 45.5 MCV 94.1 MCH 32.1 MCHC 34.2 RDW 12.9 Plt Count 290 MPV 7.5 Neutrophils % 48.7 Lymphocytes % 35.6 Monocytes % 12.5 H Eosinophils % 2.7 Basophils % 0.5 Sodium 139 Potassium 4.0 Chloride 103 Carbon Dioxide 29 Anion Gap 7 L BUN 9 Creatinine 1.1 Random Glucose 101 Calcium 8.7 C. trachomatis (ROHIT) Cancelled N. gonorrhoeae (ROHIT) Cancelled CXR: no acute pathology ASSESSMENT/PLAN: 27M w/ hx of HIV (11/03/17- CD4 of 596, viral load of 40) and syphillis who presented to hospital after being sent by PCP to r/o neurosyphillis due to recent finding of uveitis. Pt seen by ID and started on Penicillin G q4h. A lumbar puncture would discussed, but pt was non-willing regardless. RPR came back 1:32, and MHA came back as previously reactive. ID recommended a full course of IV penicillin G q4h, but pt refused stating that he wouldn't be able to comply with the regimen given his work schedule. Next, they stated that IV ceftriaxone 2g once a day for 10-14 days would be the next best option, but the pt left AMA before receiving the PICC line. The pt was explained the risks and benefits of receiving the PICC line with IV antibiotics vs. the risks and benefits of taking oral doxycyline. The pt demonstrated capacity to understand all the information that was presented to him, and he still decided to leave AMA and take the oral doxycyline. Pt was prescribed doxycyline 100mg BID for 28 days, but was supposed to be prescribed 200mg BID for 28 days. Pt called and notified of the proper dosage and told to obtain the next two week supply of medication from his PCP or the [facility]. Pt understood and agreed. -Gunner Hernandez MD PGY1 Visit type - Emergency Visit Emergency Visit: Yes ED Registration Date: 11/30/17 Care time: The patient presented to the Emergency Department on the above date and was hospitalized for further evaluation of their emergent condition. - New Patient This patient is new to me today: No - Critical Care Critical Care patient: No
--- NOTE | 2017-12-04 16:13 | PN ---
Teaching Attending Note Name of Resident: Jarrod Swanson ATTENDING PHYSICIAN STATEMENT I saw and evaluated the patient. I reviewed the resident's note and discussed the case with the resident. I agree with the resident's findings and plan as documented. SUBJECTIVE: No visual complaints Awaiting PICC OBJECTIVE: Visual acuity intact cor S1S2 lungs clear abdomen soft, non-tender ASSESSMENT AND PLAN: Ocular syphilis HIV For PICC Ceftriaxone 2gm IVPB q24h. Complete 10d course Continue Genvoya Follow up [facility]
--- NOTE | 2017-12-04 17:14 | DS ---
Physical Exam: SUBJECTIVE: Patient seen and examined No acute events overnight. Pt denies blurry vision, eye pain, headache, weakness , numbness, chest pain, SOB, n/v/d/c, and abdominal pain. OBJECTIVE: Vital Signs Period Temp Pulse Resp BP Sys/Humphrey Pulse Ox Last 24 Hr 97.6 F-98.4 F 60-73 18-18 107-143/60-65 PHYSICAL EXAM GENERAL: The patient is awake, alert, and fully oriented, in no acute distress. HEENT: right eye has mild scleral injection. EOMI, PEARRLA. LUNGS: Breath sounds equal, clear to auscultation bilaterally, no wheezes, no crackles, no accessory muscle use. HEART: Regular rate and rhythm, S1, S2 without murmur, rub or gallop. ABDOMEN: Soft, nontender, nondistended, normoactive bowel sounds EXTREMITIES: 2+ pulses, warm, well-perfused, no edema. NEUROLOGICAL: Cranial nerves II through XII grossly intact. sensory function intact and symmetrical, motor strength is 5/5 throughout. LABS Laboratory Results - last 24 hr 12/01/17 12/04/17 12/04/17 06:50 05:35 05:35 WBC 7.2 RBC 4.84 Hgb 15.6 Hct 45.5 MCV 94.1 MCH 32.1 MCHC 34.2 RDW 12.9 Plt Count 290 MPV 7.5 Neutrophils % 48.7 Lymphocytes % 35.6 Monocytes % 12.5 H Eosinophils % 2.7 Basophils % 0.5 Sodium 139 Potassium 4.0 Chloride 103 Carbon Dioxide 29 Anion Gap 7 L BUN 9 Creatinine 1.1 Random Glucose 101 Calcium 8.7 C. trachomatis (ROHIT) Cancelled N. gonorrhoeae (ROHIT) Cancelled CXR: no acute pathology HOSPITAL COURSE: Date of Admission:11/30/17 Date of Discharge: 12/04/17 27M w/ hx of HIV (11/03/17- CD4 of 596, viral load of 40) and syphillis who presented to hospital after being sent by PCP to r/o neurosyphillis due to recent finding of uveitis. Pt seen by ID and started on Penicillin G q4h. A lumbar puncture would discussed, but pt was non-willing regardless. RPR came back 1:32, and MHA came back as previously reactive. ID recommended a full course of IV penicillin G q4h, but pt refused stating that he wouldn't be able to comply with the regimen given his work schedule. Next, they stated that IV ceftriaxone 2g once a day for 10-14 days would be the next best option, but the pt left AMA before receiving the PICC line. The pt was explained the risks and benefits of receiving the PICC line with IV antibiotics vs. the risks and benefits of taking oral doxycyline. The pt demonstrated capacity to understand all the information that was presented to him, and he still decided to leave AMA and take the oral doxycyline. Pt was prescribed doxycyline 100mg BID for 28 days, but was supposed to be prescribed 200mg BID for 28 days. Pt called and notified of the proper dosage and told to obtain the next two week supply of medication from his PCP or the [facility]. Pt understood and agreed. -Gunner Hernandez MD PGY1 Minutes to complete discharge: 39 Discharge Summary Reason For Visit: SYPHILLIS/UVEITIS Condition: Stable - Instructions Diet, Activity, Other Instructions: You presented with uveitis (inflammation of your eye), and you are being treated for possible neurosyphilis. Medications: Continue all previous medications except: 1. start ceftriaxone 2g, once a day, for 10-14 more days. Follow-ups: 1. Please visit your PCP within one week. 2. Please visit ID, Dr. Francis in one week. 3. Please visit ophthalmology, Dr. Pryor, in one week. If you develop any worsening eye pain, blurry vision, headaches, weakness, numbness, or any other concerning symptoms, return to the ED. Referrals: Aurelio Francis MD [Staff Physician] - Divya Nguyen NP [Primary Care Provider] - 1 Week Patricio Pryor MD [Staff Physician] - Disposition: AGAINST MEDICAL ADVICE - Home Medications Comprehensive Discharge Medication List: Ambulatory Orders Loratadine [Claritin -] 10 mg PO DAILY #30 tablet 11/03/17 Multivitamin,Ther and Minerals [Vitamin and Minerals] 1 each PO DAILY #30 tablet 11/03/17 Doxycycline Monohydrate [Mondoxyne Nl] 100 mg PO BID 28 Days #56 capsule Elviteg/Cob/Emtri/Tenof Alafen [Genvoya Tablet] 1 tablet PO DAILY 12/01/17 Ceftriaxone [Rocephin 2Gm Ivpb (Pre-Docked)] 2 gm IVPB DAILY 7 Days #7 vial 02/16 This patient is new to me today: No Emergency Visit: Yes ED Registration Date: 11/30/17 Care time: The patient presented to the Emergency Department on the above date and was hospitalized for further evaluation of their emergent condition. Critical Care patient: No - Discharge Referral Referred to [facility] No
== END 2017-12-04 12:29 | disposition left against medical advice (07) | DRG 80 ==
LOC: JER 18:49 → JERBED 23:48 → INTOOBSV 23:48 → JERBED 12-01 00:02 → UNDOADMIN 12-01 00:02 → J5S 12-01 01:30 → J7W 12-02 11:17
PROVIDERS: ADMIT Internal Medicine; ATTEND Hospitalist
DX: A51.43 Secondary syphilitic oculopathy (principal); H20.9 Unspecified iridocyclitis; F12.90 Cannabis use, unspecified, uncomplicated; Z21 Asymptomatic human immunodeficiency virus [HIV] infection status; F17.210 Nicotine dependence, cigarettes, uncomplicated; N48.89 Other specified disorders of penis
CPT/HCPCS: 36415; 70450-TC; 71046-TC-FY; 80048; 80053; 83735; 84100; 85025; 86359; 86360; 86593; 86780; 87491; 87591; 93005; 93010; 99283-25; G0378